=== PATIENT | female | born 1980 | race Caucasian/White ===

== ENCOUNTER 2018-05-27 18:37 | Emergency (ER) | payer BC ==
[~2018-05-27] VITALS: Wt 69.5 kg
[2018-05-27] MEDS ORDERED: ONDANSETRON 4 MG INJ IV STA (22:32)
[2018-05-27] MEDS ORDERED: morphine 4 MG/ML VIAL IV STA (22:32)
[2018-05-27] MEDS ORDERED: SOD CHLORIDE 0.9% 1,000 ML IV STA (22:32)
--- NOTE | 2018-05-27 22:43 | ERD ---
ER Documentation Chief Complaint Chief Complaint C/O LICONA, R SHOULDER/ BACK PAIN X'S 2 WEEKS. PALPITATIONS CURRENTLY HPI 38-year-old woman with history of migraines complains of constant daily two-week headaches similar to prior episodes she also initially complained of palpitations and back pain although those symptoms resolved while in the waiting room. She denies dysuria, no fevers or chills, no cough, no blurry vision, no slurred speech. ROS All systems reviewed and are negative except as per history of present illness. Medications Home Meds Active Scripts Oxycodone HCl/Acetaminophen (Percocet 5-325 mg Tablet) 1 Each Tablet, 1 EACH PO TID PRN for PAIN, #9 TAB Prov:TIMI JIMÉNEZ MD 05/28/18 Naproxen* (Naprosyn*) 500 Mg Tablet, 500 MG PO BID PRN for PAIN AND/OR INFLAMMATION, #30 TAB Prov:TIMI JIMÉNEZ MD 05/28/18 Cephalexin* (Keflex*) 500 Mg Capsule, 500 MG PO QID for 5 Days, CAP Prov:TIMI JIMÉNEZ MD 05/28/18 Allergies Allergies: Coded Allergies: No Known Allergy (Unverified , 05/27/18) PMhx/Soc Migraine headaches Medical and Surgical Hx: pt denies Medical Hx, pt denies Surgical Hx Hx Alcohol Use: Yes (socially) Hx Substance Use: No Hx Tobacco Use: No Smoking Status: Never smoker FmHx Family History: No diabetes Physical Exam Vitals Vital Signs Date Temp Pulse Resp B/P (MAP) Pulse Ox O2 O2 Flow FiO2 Time Delivery Rate 05/28/18 70 16 159/95 100 Room Air 00:28 (116) 05/27/18 98.3 88 16 149/99 99 Room Air 23:27 (116) 05/27/18 97.3 90 18 181/107 99 18:44 (131) Physical Exam GENERAL: Well-developed, well-nourished, well-hydrated, in no apparent distress, looks nontoxic in appearance HEENT: Moist mucous membranes, pink conjunctiva, no cervical spine tenderness or step-off deformities, no goiter, no jaundice or icterus, extraocular movements intact without pain. No submandibular induration, and no pharyngeal erythema NEURO: Alert and oriented 3, cranial nerves II through XII intact bilaterally, pupils equal round reactive to light, no focal deficits or facial asymmetry, sensation intact distally Strength 5/5 in upper and lower extremities bilaterally CARDIAC: Regular rate and rhythm, no murmurs rubs or gallops LUNGS: Clear bilaterally no wheezing crackles or stridor ABDOMEN: Soft nontender, no guarding, no rigidity, no rebound, no psoas sign no obturator sign. Normoactive bowel sounds SKIN: Warm and dry to touch, no abrasions, contusions, or hematomas, no lacerations, no ecchymosis, no target lesions, and without ulcers EXTREMITIES: No clubbing cyanosis or edema, calves are bilaterally symmetrical, no Homans sign, no popliteal cord sign. Distal pulses equal and bilateral PSYCH: Normal affect without agitation or irritability Result Diagram: 05/27/18224705/27/182247 Results 24 hrs Laboratory Tests Test 05/27/18 20:36 05/27/18 21:46 05/27/18 22:48 Urine Color YELLOW Urine Clarity SLIGHTLY CLOUDY Urine pH 5.0 Urine Specific [place] 1.031 Urine Ketones NEGATIVE mg/dL Urine Nitrite NEGATIVE mg/dL Urine Bilirubin NEGATIVE mg/dL Urine Urobilinogen NEGATIVE mg/dL Urine Leukocyte Esterase TRACE Lilliana/ul Urine Microscopic RBC 2 /HPF Urine Microscopic WBC 5 /HPF Urine Squamous Epithelial Cells FEW /HPF Urine Bacteria FEW /HPF Urine Mucus FEW /HPF Urine Hemoglobin NEGATIVE mg/dL Urine Glucose NEGATIVE mg/dL Urine Total Protein 1+ mg/dl POC Beta HCG, Qualitative NEGATIVE White Blood Count 7.0 10^3/ul Red Blood Count 4.04 10^6/ul Hemoglobin 10.2 g/dl Hematocrit 33.1 % Mean Corpuscular Volume 81.9 fl Mean Corpuscular Hemoglobin 25.2 pg Mean Corpuscular 30.8 g/dl Hemoglobin Concent Red Cell Distribution Width 15.7 % Platelet Count 273 10^3/UL Mean Platelet Volume 8.4 fl Immature Granulocytes % 0.300 % Neutrophils % 56.4 % Lymphocytes % 31.6 % Monocytes % 7.0 % Eosinophils % 4.0 % Basophils % 0.7 % Nucleated Red Blood Cells % 0.0 /100WBC Immature Granulocytes # 0.020 10^3/ul Neutrophils # 4.0 10^3/ul Lymphocytes # 2.2 10^3/ul Monocytes # 0.5 10^3/ul Eosinophils # 0.3 10^3/ul Basophils # 0.1 10^3/ul Nucleated Red Blood Cells # 0.0 10^3/ul Sodium Level 139 mmol/L Potassium Level 3.9 mmol/L Chloride Level 105 mmol/L Carbon Dioxide Level 26 mmol/L Anion Gap 8 Blood Urea Nitrogen 10 mg/dl Creatinine 0.51 mg/dl Est Glomerular Filtrat > 60 mL/min Rate mL/min Glucose Level 85 mg/dl Calcium Level 8.8 mg/dl Current Medications Medications Dose Sig/Betina Start Time Status Last (Trade) Ordered Route PRN Stop Time Admin Dose Reason Admin Sodium 1,000 ml @ Q1H STAT 05/27/18 DC 05/27/18 Chloride 1,000 mls/hr IV 22:32 23:24 05/27/18 23:31 Morphine 4 mg ONCE STAT 05/27/18 DC 05/27/18 Sulfate IV 22:32 23:24 (morphine) 05/27/18 22:34 Ondansetron 4 mg ONCE STAT 05/27/18 DC 05/27/18 HCl (Zofran IV 22:32 23:23 Inj) 05/27/18 22:34 Cephalexin 500 mg ONCE ONCE 05/28/18 DC 05/28/18 (Keflex) PO 00:30 00:56 05/28/18 00:31 Procedures/MDM IV line was established patient was placed on vehicle monitor technician rhythm strip revealed a sinus rhythm at about 90 bpm with upright P and T waves. Patient was afebrile EKG performed, read by me revealed a normal sinus rhythm at 93 bpm, first-degree AV block at 224 ms, right axis, narrow QRS complex, no concerning ST elevations or depressions noted I administered 1 L normal saline IV, morphine 4 mg IV, Zofran 4 mg IV Urinalysis was positive for infection, test was negative I administered cephalexin 500 mg p.o. x1. CBC and electrolytes were normal Patient's headache completely resolved and she feels much better she will be discharged to follow-up with PMD for continued outpatient management. Differential diagnoses considered, included but not limited to acute coronary syndrome, pulmonary embolism, aortic dissection, abdominal aortic aneurysm, sepsis, stroke, meningitis, encephalitis, pneumonia, appendicitis, cholecystitis, bowel obstruction, pyelonephritis, nephrolithiasis, cystitis, as well as metabolic, hematologic, and electrolyte abnormalities. As well as abscess, cellulitis, fractures, and dislocations. Patient feels much better at this time, and vital signs are normal, symptoms have improved. I did give strict instructions to return to the ED if symptoms continue or worsen, patient will otherwise follow-up with primary care physician. Patient understood instructions and agreed to plan. Disclaimer: Inadvertent spelling and grammatical errors are likely due to EHR/dictation software use and do not reflect on the overall quality of patient care. Also, please note that the electronic time recorded on this note does not necessarily reflect the actual time of the patient encounter. Departure Diagnosis: Primary Impression: Migraine headache Migraine type: unspecified Status migrainosus presence: without status migrainosus Intractability: not intractable Qualified Codes: G43.909 - Migraine, unspecified, not intractable, without status migrainosus Additional Impression: Acute UTI Condition: TIMI Davies MD May 27, 2018 22:43
[2018-05-28] MEDS ORDERED: CEPH-443 PO (00:23)
[2018-05-28] MEDS ORDERED: NAPR-985 PO (00:23)
[2018-05-28] MEDS ORDERED: OXYC-279 PO (00:23)
[2018-05-28 00:28] VITALS: BP 159/95; PULSE 70; RESP 16
[2018-05-28] MEDS ORDERED: CEPHALEXIN 500 MG CAP PO ONE (00:30)
== END 2018-05-28 00:57 | disposition home or self-care (01) ==
LOC: E/R 18:37
DX: G43.909 Migraine, unspecified, not intractable, without status migrainosus (principal); N39.0 Urinary tract infection, site not specified; R00.2 Palpitations
CPT/HCPCS: 36415; 70450; 80048; 81001; 81025; 85025; 93005; 96374; 96375; 99285; J2270; J2405; J7030